=== PATIENT | male | born 1985 | race African-American/Black ===

== ENCOUNTER 2022-01-01 06:57 | Emergency (ER) | payer MEDICAID, OTHER ==
[~2022-01-01] VITALS: Ht 193 cm; Wt 113.4 kg
[2022-01-01] MEDS ORDERED: SODIUM CHLORIDE 0.9% 1,000 ML IVB ONE (07:30)
[2022-01-01] MEDS ORDERED: PANTOPRAZOLE 40 MG/10 ML VIAL INJ IV ONE (07:30)
[2022-01-01] MEDS ORDERED: MORPHINE SULFATE 4 MG/ML SYR/VIAL IV ONE (07:30)
[2022-01-01] MEDS ORDERED: PROCHLORPERAZINE EDISYLATE 5 MG/ML 2ML VIAL IV ONE (07:30)
[2022-01-01 08:24] LABS: Basophils # (auto) 0 10 ^3/uL (0-0.2); Basophils % (auto) 0.2 % (0.0-2.0); Eosinophils # (auto) 0.2 10 ^3/uL (0-0.8); Eosinophils % (auto) 1.7 % (0.0-7.0); Hemoglobin 17.2 g/dL (13.5-17.5); Lymphocytes # (auto) 1.2 10 ^3/uL (0.4-5.4); Lymphocytes % (auto) 9.7 % (10.0-50.0); Mean Corpuscular Hemoglobin 30.5 pg (28.0-32.0); Mean Corpuscular Hgb Conc. 34.3 g/dL (32.0-36.0); Mean Corpuscular Volume 88.8 fL (80.0-100.0); Monocytes # (auto) 0.9 10 ^3/uL (0-1.3); Monocytes % (auto) 7.1 % (0.0-12.0); Neutrophils # (auto) 10.1 10 ^3/uL (1.6-8.6); Neutrophils % (auto) 81.3 % (37.0-80.0); Red Blood Cells 5.63 10^6/uL (4.5-5.90); Red Cell Distribution Width 13.7 % (11.8-14.3); White Blood Cell 12.4 10^3/uL (4.4-10.8)
[2022-01-01 08:39] LABS: Albumin 4.4 g/dL (3.4-5.0); Potassium 3.6 mmol/L (3.5-5.1)
[2022-01-01 08:44] LABS: BUN/Creatinine Ratio 10.1; Bilirubin, Total 1.1 mg/dL (0.2-1.0); Total Protein 8.9 g/dL (6.4-8.2)
[2022-01-01 08:45] LABS: Amylase 75 U/L (25-115); Lipase 68 U/L (73-393)
[2022-01-01] MEDS ORDERED: ONDANSETRON HCL 4 MG/2 ML VIAL IV ONE (10:00)
[2022-01-01] MEDS: OMNIPAQUE ORAL SOLN 500ml 12mg/ml PO ONE ×2 (10:17→10:18)
[2022-01-01] MEDS ORDERED: ONDANSETRON HCL 4 MG/2 ML VIAL IV PRN (11:30)
[2022-01-01] MEDS ORDERED: MORPHINE SULFATE INJ 2 MG/ml SYRG IV PRN (11:30)
[2022-01-01] MEDS ORDERED: cefTRIAXone 1GM/50ML D5W 50 ML IV ONE (11:45)
[2022-01-01] MEDS ORDERED: LACTATED RINGER'S 1,000 ML IV SCH (11:45)
[2022-01-01 12:13] LABS: Cholesterol 208 mg/dL (< 200)
[2022-01-01 12:16] LABS: HDL Cholesterol 41 mg/dL (40-59); LDL Cholesterol 155 mg/dL (< 100); Triglycerides 148 mg/dL (< 150)
[2022-01-01] MEDS ORDERED: IOHEXOL 300 MG/ML 100ML BOTTLE IJ ONE (12:53)
[2022-01-01] MEDS ORDERED: metroNIDAZOLE 500MG/100ML 100 ML IV SCH (14:00)
[2022-01-01 17:13] VITALS: BP 114/73
[2022-01-02] MEDS ORDERED: cefTRIAXone 1GM/50ML D5W 50 ML IV SCH (09:00)
== END 2022-01-01 18:15 | disposition left against medical advice (07) ==
LOC: ER 06:57 → EDBD 06:57 → ER 18:15
DX: F12.188 Cannabis abuse with other cannabis-induced disorder (principal); D72.829 Elevated white blood cell count, unspecified; F12.10 Cannabis abuse, uncomplicated; Z20.822 Contact with and (suspected) exposure to COVID-19
CPT/HCPCS: 36415; 74176; 74177; 80053; 80061; 82150; 83036; 83690; 85025; 87426; 96361; 96365; 96367; 96375; 99285; C9113; J0696; J0780; J2270; J2405; J3490; J7030; Q9967